=== PATIENT | female | born 1980 | race American Indian/Alaskan Native ===

== ENCOUNTER 2018-12-19 06:19 | Emergency (ER) | payer OTHER ==
[2018-12-19] MEDS ORDERED: NACL 0.9% 1000 ML 1,000 ML IV ONE (06:28)
[2018-12-19 06:43] VITALS: BP 112/68
[2018-12-19 07:22] LABS: Basophils % (Auto) 0.8 % (0.0-1.8); Eosinophils # (Auto) 0.1 K/mm3 (0.0-0.4); Eosinophils % (Auto) 2.3 % (0.0-4.3); Hemoglobin 12.2 gm/dl (10.1-14.3); Lymphocytes # (Auto) 1.4 K/mm3 (1.2-5.4); Lymphocytes % (Auto) 33.5 % (13.4-35.0); Mean Corpuscular HGB Conc 33 % (30-34); Mean Corpuscular Volume 85 fl (79-97); Monocytes # (Auto) 0.5 K/mm3 (0.0-0.8); Monocytes % (Auto) 11.7 % (0.0-7.3); Platelet Count 234 K/mm3 (140-440); Red Blood Count 4.38 M/mm3 (3.65-5.03); Red Cell Distribution Width 16.1 % (13.2-15.2)
[2018-12-19 07:32] LABS: Alanine Aminotransferase 12 units/L (7-56); Albumin 3.9 g/dL (3.9-5); BUN/Creatinine Ratio 18; Blood Urea Nitrogen 9 mg/dL (7-17); Calcium 8.6 mg/dL (8.4-10.2); Hemolysis Index 19
[2018-12-19] MEDS ORDERED: TORADOL IM ONE (08:18)
[2018-12-19] MEDS ORDERED: ZOFRAN IM ONE (08:18)
--- NOTE | 2018-12-19 08:23 | Emergency Department Report ---
ED Female HPI - General Chief complaint: Abdominal Pain Stated complaint: [place] FIBROIDS Time Seen by Provider: 12/19/18 08:15 Source: patient Mode of arrival: Ambulatory Limitations: No Limitations - History of Present Illness Initial comments: Patient is a 38 years old female with history of endometriosis scheduled for surgery per patient report. Patient presented to the ER complaining of pelvic pain for the last 2 days. Patient stated that pain is similar to what she had before clearing her menstrual cycle. The patient described her pain as crampy in nature with no radiation. Patient denied any fever or chills. Patient stated that she's been having nausea and vomiting. She was prescribed ibuprofen by her primary care physician but that is not helping. MD Complaint: pelvic pain - Related Data Previous Rx's Medication Instructions Recorded Last Taken Type Acetaminophen/Codeine [Tylenol 1 tab PO Q6H PRN #14 tab 07/25/18 Unknown Rx /Codeine # 3 tab] Sulfamethoxazole/Trimethoprim 1 each PO BID #14 tablet 07/25/18 Unknown Rx [Bactrim DS TAB] Allergies Allergy/AdvReac Type Severity Reaction Status Date / Time cefazolin [From Ancef] Allergy Itching Verified 12/19/18 06:27 medroxyprogesterone Allergy Shortness Verified 12/19/18 06:27 [From Provera] of Breath ED Review of Systems ROS: Stated complaint: NV FIBROIDS Other details as noted in HPI Comment: All other systems reviewed and negative Constitutional: denies: chills, fever Respiratory: denies: cough, orthopnea, shortness of breath, SOB with exertion, SOB at rest Cardiovascular: denies: chest pain, palpitations, dyspnea on exertion Gastrointestinal: abdominal pain, nausea, vomiting. denies: diarrhea, constipation, hematemesis, melena, hematochezia Genitourinary: abnormal menses. denies: urgency, dysuria, frequency, discharge Musculoskeletal: denies: back pain Neurological: denies: headache, weakness, numbness, paresthesias, confusion, abnormal gait ED Past Medical Hx - Past Medical History Previous Medical History?: Yes Hx Hypertension: No Hx CVA: No Hx Heart Attack/AMI: No Hx Congestive Heart Failure: No Hx Diabetes: No Hx Deep Vein Thrombosis: No Hx Pulmonary Embolism: No Hx GERD: No Hx Liver Disease: No Hx Renal Disease: No Hx Sickle Cell Disease: No Hx Arthritis: No Hx Headaches / Migraines: No Hx Seizures: No Hx Kidney Stones: No Hx Psychiatric Treatment: No Hx Asthma: No Hx COPD: No Hx Tuberculosis: No Hx Dementia: No Hx HIV: No Additional medical history: anemia. fibroids - Surgical History Past Surgical History?: Yes Hx Coronary Stent: No Hx Open Heart Surgery: No Hx Pacemaker: No Hx Internal Defibrillator: No Hx Cholecystectomy: No Hx Appendectomy: No Hx Breast Surgery: No Additional Surgical History: ovarian cyst removal. d&c - Social History Smoking Status: Current Every Day Smoker Substance Use Type: None - Medications Home Medications: Home Medications Medication Instructions Recorded Confirmed Last Taken Type Acetaminophen/Codeine [Tylenol 1 tab PO Q6H PRN #14 tab 07/25/18 Unknown Rx /Codeine # 3 tab] Sulfamethoxazole/Trimethoprim 1 each PO BID #14 tablet 07/25/18 Unknown Rx [Bactrim DS TAB] ED Physical Exam - General Limitations: No Limitations General appearance: alert, in no apparent distress - Head Head exam: Present: atraumatic, normocephalic, normal inspection - Eye Eye exam: Present: normal appearance - ENT ENT exam: Present: normal orophraynx, mucous membranes moist - Neck Neck exam: Present: normal inspection, full ROM. Absent: tenderness, meningismus, lymphadenopathy, thyromegaly - Respiratory Respiratory exam: Present: normal lung sounds bilaterally - Cardiovascular Cardiovascular Exam: Present: regular rate, normal rhythm, normal heart sounds - GI/Abdominal GI/Abdominal exam: Present: soft, normal bowel sounds. Absent: distended, tenderness, guarding, rebound, rigid, organomegaly, mass, bruit, pulsatile mass, hernia - Extremities Exam Extremities exam: Present: normal inspection, full ROM, normal capillary refill - Back Exam Back exam: Present: normal inspection, full ROM. Absent: tenderness, CVA tenderness (R), CVA tenderness (L), muscle spasm, paraspinal tenderness, vertebral tenderness - Neurological Exam Neurological exam: Present: alert, oriented X3, CN II-XII intact - Skin Skin exam: Present: warm, intact, normal color ED Course Vital Signs 12/19/18 06:25 Temperature 97.5 F L Pulse Rate 66 Respiratory 18 Rate Blood Pressure 112/68 O2 Sat by Pulse 96 Oximetry ED Medical Decision Making - Lab Data Result diagrams: 12/19/18 06:44 12/19/18 06:44 - Medical Decision Making Patient is a 38 years old female with history of endometriosis scheduled for surgery per patient report. Patient presented to the ER complaining of pelvic pain for the last 2 days. Patient stated that pain is similar to what she had before clearing her menstrual cycle. The patient described her pain as crampy in nature with no radiation. Patient denied any fever or chills. Patient stated that she's been having nausea and vomiting. She was prescribed ibuprofen by her primary care physician but that is not helping. Patient received Toradol and Zofran which helped with her pain and nausea. Patient symptoms as similar to her previous episode. Labs reviewed and is unremarkable. No clinical or laboratory evidence of acute abdomen including acute appendicitis. I strongly advised patient to follow-up with our gynecology and to return to the ER if her symptoms are not improved. Critical care attestation.: If time is entered above; I have spent that time in minutes in the direct care of this critically ill patient, excluding procedure time. ED Disposition Clinical Impression: Abdominal pain, Dysmenorrhea Disposition: - TO HOME OR SELFCARE Is pt being admited?: No Condition: Stable Instructions: Abdominal Pain (ED), Dysmenorrhea (ED), Endometriosis (ED) Referrals: PRIMARY CARE, [Referring] - 3-5 Days
== END 2018-12-19 09:05 | disposition home or self-care (01) ==
LOC: ED 06:19
DX: N94.6 Dysmenorrhea, unspecified (principal); R11.2 Nausea with vomiting, unspecified; D64.9 Anemia, unspecified; F17.200 Nicotine dependence, unspecified, uncomplicated; Z88.1 Allergy status to other antibiotic agents; Z88.8 Allergy status to other drugs, medicaments and biological substances
CPT/HCPCS: 36415; 80053; 83690; 84703; 85025; 96372; 99283; J1885; J2405